=== PATIENT | male | born 1975 | race Caucasian/White ===

== ENCOUNTER 2022-12-04 23:37 | Emergency (ER) | payer OTHER, MEDICAID | END 2022-12-05 01:45 | disposition home or self-care (01) | LOC: JP.ED 23:37 | DX: G40.909 Epilepsy, unspecified, not intractable, without status epilepticus (principal); Z88.6 Allergy status to analgesic agent; Z79.899 Other long term (current) drug therapy | CPT/HCPCS: 70450; 72125; 76377; 99284 ==